=== PATIENT | male | born 1990 | race Two or more races ===

== ENCOUNTER 2020-03-31 09:44 | Outpatient (CLI) | payer OTHER | END 2020-03-31 17:52 | disposition home or self-care (01) | LOC: OFIC 805 09:44 | PROVIDERS: ATTEND Otolaryngology | DX: J34.3 Hypertrophy of nasal turbinates (principal); J34.2 Deviated nasal septum; J32.8 Other chronic sinusitis ==

== ENCOUNTER 2020-05-13 10:56 | Outpatient (CLI) | payer OTHER | END 2020-05-13 12:09 | disposition home or self-care (01) | LOC: OFIC 805 10:56 | PROVIDERS: ATTEND Otolaryngology | DX: J32.8 Other chronic sinusitis (principal); J34.2 Deviated nasal septum; J34.3 Hypertrophy of nasal turbinates ==